=== PATIENT | female | born 2005 | race Caucasian/White ===

== ENCOUNTER 2025-07-24 09:53 | Outpatient (CLI) | payer BC, SELFPAY ==
[2025-07-24 14:20] LABS: Chlamydia DNA Amplified* NOT DETECTED (No Detected); GC DNA Amplified* NOT DETECTED (No Detected)
[2025-07-30 15:42] LABS: Pap Test Digital Imaging Done; Pap Test Reviewed by Path Done
== END 2025-07-24 09:54 | disposition home or self-care (01) ==
PROVIDERS: PCP Physician Assistant Medical; Visit Provider Physician Assistant Medical
DX: Z00.00 Encounter for general adult medical examination without abnormal findings (principal)
CPT/HCPCS: 87491; 87591; 87624; 87625; 88141; 88142; 88175

== ENCOUNTER 2025-07-27 11:56 | Outpatient (CLI) | payer BC, SELFPAY | END 2025-07-27 11:57 | disposition home or self-care (01) | LOC: NFLDREF 07-28 18:36 | PROVIDERS: PCP Physician Assistant Medical; Referring Provider Physician Assistant Medical; Visit Provider Physician Assistant Medical | DX: Z00.00 Encounter for general adult medical examination without abnormal findings (principal) | CPT/HCPCS: 80053; 82306; 84443 ==